=== PATIENT | male | born 1995 | race Caucasian/White ===

== ENCOUNTER 2021-09-22 13:41 | Emergency (ER) | payer OTHER ==
[~2021-09-22 13:41] MED LIST: BACTROBAN OINT22 GM EXT; CLEOCIN HCL300 MG PO
[2021-09-22 14:21] LABS: HEMOGLOBIN 13.5 gm/dl (14.0-17.5); RED BLOOD COUNT 4.08 M/UL (4.20-5.50); WHITE BLOOD COUNT 12.2 K/UL (4.5-11.0)
[2021-09-22 14:38] LABS: BUN/CREATININE RATIO 14 (0-10)
[2021-09-22] MEDS ORDERED: ZEBETA 5 MG TAB5 MG PO (14:39)
[2021-09-23] MEDS ORDERED: LOPRESSOR 25 MG25 MG PO (13:38)
== END 2021-09-22 17:11 | disposition home or self-care (01) ==
LOC: ER1 13:41
PROVIDERS: Emergency Medicine
DX: R00.2 Palpitations (principal); I47.1 Supraventricular tachycardia
CPT/HCPCS: 80053; 80307; 82550; 82553; 83735; 84484; 85025; 93005; 96374; 96375; 99285; J0153

== ENCOUNTER 2021-09-22 17:25 | Observation (INO) | payer OTHER ==
[~2021-09-22] VITALS: Ht 185.4 cm; Wt 137.5 kg
[~2021-09-22 17:25] MED LIST changes: +ZEBETA 5 MG TAB5 MG PO
[2021-09-22 19:06] LABS: HEMOGLOBIN 12.7 gm/dl (14.0-17.5); RED BLOOD COUNT 3.89 M/UL (4.20-5.50); WHITE BLOOD COUNT 10.5 K/UL (4.5-11.0)
[2021-09-22 19:08] LABS: BUN/CREATININE RATIO 13 (0-10)
[2021-09-23 01:14] LABS: HEMOGLOBIN 12.1 gm/dl (14.0-17.5); RED BLOOD COUNT 3.7 M/UL (4.20-5.50)
[2021-09-23 01:32] LABS: BUN/CREATININE RATIO 13 (0-10)
--- NOTE | 2021-09-23 12:19 | NUR ---
PT WAS NOTICED NOT IN HIS ROOM. I PROCEDED TO LOOK FOR THE PAIENT OUT OF THE FRONT DOOR THEN AROUND THE POND AND THEN IN THE [place]FETERIA. i THEN LET SECURITY KNOW AND CALLED OUR CLINICAL REHABILITATION SPECIALIST. AFTER THAT I CALLED THE PATIENT AND HE ANSWERED AT THE HOUSE WITH HIS KIDS IN THE BACK GROUND AND WAS CONFRONTED ABOUT WHY HE LEFT THE FACILITY. HE STATED THAT TOLD HIM IT WAS OKAY FOR HIM TO GO HOME, SO HE DID. I THEN ASKED IF HE STILL HAD HIS IV IN AND HE STATED THAT HE HAD TAKEN IT OUT. ONCE I FIGURED OUT THAT HE WAS AT HOME AND WHAT HAD HAPPENED, I THEN CALLED THE MD AND TOLD HIM WHAT HAD HAPPENED. HE SAID THEY HE WOULD COME AND ORDER HIS MEDICATIONS TO HIS PHARMACY AND LET HIM KNOW WHAT HE PLANNED ON DOING.
[2021-09-23] MEDS ORDERED: LOPRESSOR 25 MG25 MG PO (13:38)
== END 2021-09-23 13:57 | disposition home or self-care (01) ==
LOC: ER1 17:25 → CDU 21:22 → PROG CARE 21:33
PROVIDERS: Emergency Medicine; ADMIT Internal Medicine
DX: I47.1 Supraventricular tachycardia (principal); E66.01 Morbid (severe) obesity due to excess calories; F10.20 Alcohol dependence, uncomplicated; F17.210 Nicotine dependence, cigarettes, uncomplicated; Z68.41 Body mass index [BMI] 40.0-44.9, adult; Y90.6 Blood alcohol level of 120-199 mg/100 ml
CPT/HCPCS: 36415; 80048; 80053; 82550; 82553; 83036; 83735; 84439; 84443; 84484; 85025; 85027; 85610; 93005; 96374; 99285; G0378; G0480; J0153; J1885